=== PATIENT | male | born 1965 | race American Indian/Alaskan Native ===

== ENCOUNTER 2016-12-18 16:53 | Emergency (ER) | payer SELFPAY ==
[2016-12-18 17:30] LABS: Basophils % (Auto) 0.9 % (0.0-1.8); Eosinophils % (Auto) 3.3 % (0.0-4.3); Hematocrit 45.4 % (35.5-45.6); Hemoglobin 15.2 gm/dl (11.8-15.2); Mean Corpuscular HGB Conc 34 % (32-34); Mean Corpuscular Hemoglobin 33 pg (28-32); Mean Corpuscular Volume 98 fl (84-94); Platelet Count 221 K/mm3 (140-440); Red Blood Count 4.64 M/mm3 (3.65-5.03); Red Cell Distribution Width 13.1 % (13.2-15.2); White Blood Count 5.2 K/mm3 (4.5-11.0)
[2016-12-18 17:46] LABS: Anion Gap 12 mmol/L; BUN/Creatinine Ratio 24.28; Blood Urea Nitrogen 17 mg/dL (9-20); Calcium 9.3 mg/dL (8.4-10.2); Carbon Dioxide 29 mmol/L (22-30); Chloride 102.2 mmol/L (98-107); Glucose 93 mg/dL (75-100); Potassium 4.5 mmol/L (3.6-5.0); Sodium 139 mmol/L (137-145)
--- NOTE | 2016-12-19 00:09 | Emergency Department Report ---
- General Chief complaint: Neuro Symptoms/Deficit Stated complaint: LT ARM NUMBNESS Time Seen by Provider: 12/19/16 00:05 Source: patient Mode of arrival: Ambulatory Limitations: No Limitations - History of Present Illness Initial comments: Pt is a pleasant 51 yr old male with a h/o deopression who presents with intermittent parasthesias of his upper extremities. Pt reports they have been occurring for over a month with no other associated symptoms. Pt reports he discussed the findings with his mental health provider and he was told it was likely a side effect of his prozac. Currently patient is asymptomatic. Otherwise no fevers, chills, MADRID, dizziness, vision changes, speech changes, gait abnormality, neck pain, arm pain, CP, SOB, abd pain, trauma, falls, sick contacts, or travel - Related Data Allergies Allergy/AdvReac Type Severity Reaction Status Date / Time No Known Allergies Allergy Unverified 12/18/16 16:59 ED Review of Systems ROS: Stated complaint: LT ARM NUMBNESS Other details as noted in HPI Comment: All other systems reviewed and negative ED Past Medical Hx - Past Medical History Previous Medical History?: Yes Hx Psychiatric Treatment: Yes (depression) - Surgical History Past Surgical History?: No - Social History Smoking Status: Never Smoker Substance Use Type: None ED Physical Exam - General Limitations: No Limitations General appearance: alert, in no apparent distress - Head Head exam: Present: atraumatic, normocephalic - Eye Eye exam: Present: normal appearance - ENT ENT exam: Present: mucous membranes moist - Neck Neck exam: Present: normal inspection - Respiratory Respiratory exam: Present: normal lung sounds bilaterally. Absent: respiratory distress - Cardiovascular Cardiovascular Exam: Present: regular rate, normal rhythm. Absent: systolic murmur, diastolic murmur, rubs, gallop - GI/Abdominal GI/Abdominal exam: Present: soft, normal bowel sounds - Rectal Rectal exam: Present: deferred - Extremities Exam Extremities exam: Present: normal inspection - Back Exam Back exam: Present: normal inspection - Neurological Exam Neurological exam: Present: alert, oriented X3, CN II-XII intact, normal gait, reflexes normal, other ((-) cerebellar signs, (-)sensation changes). Absent: motor sensory deficit - Psychiatric Psychiatric exam: Present: normal affect, normal mood - Skin Skin exam: Present: warm, dry, intact, normal color. Absent: rash ED Course Vital Signs 12/18/16 16:59 Temperature 98.2 F Pulse Rate 69 Respiratory 18 Rate Blood Pressure 119/86 O2 Sat by Pulse 100 Oximetry ED Medical Decision Making - Lab Data Result diagrams: 12/18/16 17:17 12/18/16 17:17 Critical care attestation.: If time is entered above; I have spent that time in minutes in the direct care of this critically ill patient, excluding procedure time. ED Disposition Clinical Impression: Arm paresthesia, left, Paresthesia of both hands Disposition: DISCHARGED TO HOME OR SELFCARE Is pt being admited?: No Condition: Stable Instructions: Paresthesia (ED) Additional Instructions: Follow up with your mental health provider for medication review Referrals: PRIMARY CARE, [Primary Care Provider] - 3-5 Days
[2016-12-19 00:29] VITALS: BP 115/72
== END 2016-12-19 00:31 | disposition home or self-care (01) ==
LOC: ED 16:53
DX: R20.9 Unspecified disturbances of skin sensation (principal); F32.9 Major depressive disorder, single episode, unspecified
CPT/HCPCS: 36415; 80048; 85025; 99283

== ENCOUNTER 2017-10-15 09:28 | Emergency (ER) | payer SELFPAY ==
[2017-10-15] MEDS ORDERED: ASPIRIN PO ONE (09:58)
[2017-10-15 10:57] LABS: Basophils % (Auto) 0.8 % (0.0-1.8); Eosinophils % (Auto) 0.5 % (0.0-4.3); Hemoglobin 15.8 gm/dl (11.8-15.2); Lymphocytes # (Auto) 1.5 K/mm3 (1.2-5.4); Lymphocytes % (Auto) 30.4 % (13.4-35.0); Mean Corpuscular HGB Conc 34 % (32-34); Mean Corpuscular Hemoglobin 33 pg (28-32); Mean Corpuscular Volume 97 fl (84-94); Monocytes # (Auto) 0.4 K/mm3 (0.0-0.8); Monocytes % (Auto) 7.6 % (0.0-7.3); Platelet Count 211 K/mm3 (140-440); Red Blood Count 4.73 M/mm3 (3.65-5.03); Red Cell Distribution Width 12.6 % (13.2-15.2)
[2017-10-15 11:06] LABS: BUN/Creatinine Ratio 13; Blood Urea Nitrogen 12 mg/dL (9-20); Calcium 8.7 mg/dL (8.4-10.2); Hemolysis Index 25
[2017-10-15] MEDS ORDERED: LIDOCAINE VISCOUS 2% PO ONE (11:11)
[2017-10-15] MEDS ORDERED: ALUM-MAG HYDROX-SIMETH 200-200-20MG/5ML PO ONE (11:11)
--- NOTE | 2017-10-15 11:16 | Emergency Department Report ---
ED Chest Pain HPI - General Chief Complaint: Chest Pain Stated Complaint: CHEST PAIN Time Seen by Provider: 10/15/17 10:47 Source: patient Mode of arrival: Ambulatory Limitations: No Limitations - History of Present Illness Initial Comments: 51-year-old male with no significant past medical history that presents with intermittent, progressive onset left sided chest pain. Pain is burning in nature. Nonradiating. Nonexertional. Nonpleuritic. Patient states the symptoms to get worse when he lies down. This been going on for the past month. He says episodes happened 3-4 times a week. Has never had these episodes checked out before. Patient states that he hasn't really been eating much lately. Has not tried anything for the symptoms at home. He is a smoker. -: Gradual Severity scale (0 -10): 0 Quality: aching, other (burning) Other Symptoms: denies: cough, fever, syncope, rash, acid taste in mouth, leg swelling, palpitations, burping Treatments Prior to Arrival: none Aspirin use within the Past 7 Days: (0) No - Related Data Allergies Allergy/AdvReac Type Severity Reaction Status Date / Time No Known Allergies Allergy Verified 10/15/17 09:53 Heart Score - HEART Score History: Slightly suspicious EKG: Normal Age: 45-65 Risk factors: 1-2 risk factors Troponin: < normal limit HEART Score: 2 ED Review of Systems ROS: Stated complaint: CHEST PAIN Other details as noted in HPI Constitutional: denies: chills, fever Eyes: denies: eye pain, eye discharge, vision change Respiratory: denies: cough, shortness of breath, wheezing Cardiovascular: chest pain Gastrointestinal: denies: abdominal pain, nausea, diarrhea Genitourinary: denies: dysuria, frequency Musculoskeletal: denies: back pain, joint swelling, arthralgia Skin: denies: rash Psychiatric: denies: anxiety, depression Hematological/Lymphatic: denies: easy bleeding, easy bruising ED Past Medical Hx - Past Medical History Hx Psychiatric Treatment: Yes (depression) - Family History Family history: hypertension - Social History Smoking Status: Current Every Day Smoker Substance Use Type: None ED Physical Exam - General Limitations: No Limitations General appearance: alert, in no apparent distress - Head Head exam: Present: atraumatic, normocephalic - Eye Eye exam: Present: normal appearance - ENT ENT exam: Present: normal orophraynx, mucous membranes moist - Neck Neck exam: Present: normal inspection - Respiratory Respiratory exam: Present: normal lung sounds bilaterally. Absent: respiratory distress - Cardiovascular Cardiovascular Exam: Present: regular rate, normal rhythm, other (left chest wall tenderness). Absent: systolic murmur, diastolic murmur, rubs, gallop - GI/Abdominal GI/Abdominal exam: Present: soft, normal bowel sounds - Extremities Exam Extremities exam: Present: normal inspection - Neurological Exam Neurological exam: Present: alert, oriented X3 - Psychiatric Psychiatric exam: Present: normal affect, normal mood - Skin Skin exam: Present: warm, dry, intact, normal color ED Course Vital Signs 10/15/17 10/15/17 09:58 11:48 Temperature 98.3 F 98.1 F Pulse Rate 65 55 L Respiratory 20 12 Rate Blood Pressure 122/69 114/72 [Right] O2 Sat by Pulse 100 100 Oximetry CHANDAN score - Chandan Score Age > 65: (0) No Aspirin use within the Past 7 Days: (0) No 3 or more CAD Risk Factors: (0) No 2 or more Angina events in past 24 hrs: (1) Yes Known CAD with more than 50% Stenosis: (0) No Elevated Cardiac Markers: (0) No ST Deviation Greater than 0.5mm: (0) No CHANDAN Score: 1 ED Medical Decision Making - Lab Data Result diagrams: 10/15/17 10:28 10/15/17 11:26 - EKG Data EKG shows normal: sinus rhythm, axis, intervals, QRS complexes, ST-T waves Rate: normal - EKG Data When compared to previous EKG there are: previous EKG unavailable Interpretation: nonspecific ST-T wave stella - Radiology Data Radiology results: report reviewed, image reviewed interpreted by me: no acute process - Medical Decision Making 51-year-old male which presents with history of atypical chest pain. EKG is nonischemic. Troponins negative 1. Patient is low risk by heart score. Chest pain is reproducible on visual exam. He says that it has been going on for the past month without worsening. He rides his bike every day to work and this doesn't affect his chest pain when it occurs. Patient was given a GI cocktail, which also improved his symptoms. He reports not eating anything for the past 5 days. Patient will be started on Tylenol/Pepcid for symptomatically relief. He will be referred to this outside clinic for further management. I have low suspicion for ACS, PE, unstable angina, AAA at this time. Return because haven't discussed. Clear for discharge. - Differential Diagnosis STEMI, unstable angina, ACS, pericarditis, pneumothorax, pneumonia, bronchi Critical care attestation.: If time is entered above; I have spent that time in minutes in the direct care of this critically ill patient, excluding procedure time. ED Disposition Clinical Impression: Chest pain Disposition: DC-01 TO HOME OR SELFCARE Is pt being admited?: No Does the pt Need Aspirin: No Condition: Stable Instructions: Chest Pain (ED), Costochondritis (ED) Additional Instructions: Please start taking 975 mg Tylenol every 6 hours for the next week. After this a daily 20 mg Pepcid. Both these medications can be purchased over-the- counter. Stop taking his medications after week. Please add a daily baby aspirin, 81 mg, to your home medications. If your chest pain returns please continue the Pepcid. If he develops worsening chest pain, chest pain that is affected by exertion, or the pain started radiating down her arm, please return to the ER immediately for reevaluation. Referrals: PRIMARY CAREMD [Primary Care Provider] - 3-5 Days [facility] [Outside] - 3-5 Days
--- NOTE | 2017-10-15 12:05 | XRay Report ---
CHEST 2 VIEWS INDICATION: Chest pain. COMPARISON: None similar at this institution. FINDINGS: PA and lateral chest radiographs demonstrate normal cardiomediastinal silhouette. Clear lungs. Intact bones. CONCLUSION: No acute disease in the chest. Thank you for the opportunity to participate in this patient's care.
[2017-10-15 12:13] LABS: BUN/Creatinine Ratio 13; Blood Urea Nitrogen 12 mg/dL (9-20); Calcium 8.4 mg/dL (8.4-10.2); Hemolysis Index 7
[2017-10-15 18:39] VITALS: BP 104/65
== END 2017-10-15 13:20 | disposition home or self-care (01) ==
LOC: ED 09:28
DX: R07.9 Chest pain, unspecified (principal); F32.9 Major depressive disorder, single episode, unspecified; I10 Essential (primary) hypertension; F17.200 Nicotine dependence, unspecified, uncomplicated
CPT/HCPCS: 36415; 71046; 80048; 84484; 85025; 93005; 93010; 99284

== ENCOUNTER 2021-03-23 15:53 | Emergency (ER) | payer SELFPAY ==
--- NOTE | 2021-03-23 19:28 | Emergency Department Report ---
ED Back Pain/Injury HPI - General Chief Complaint: Back Pain/Injury Stated Complaint: PAIN LOWER BACK ON RT SIDE Time Seen by Provider: 03/23/21 19:23 Source: patient Limitations: No Limitations - History of Present Illness Initial Comments: Patient is a 55-year-old male who presents emergency room complaints of right lower back pain that began 2 weeks ago. Patient reports that he works at [employer] and frequently lifts heavy boxes. He denies any fall or injury. He denies any fever, nausea, vomiting, diarrhea, abdominal pain, chest pain, shortness of breath, numbness, weakness, bowel or bladder incontinence, urinary symptoms. He is ambulatory without difficulty. No past medical history. No allergies to medications. He denies any steroid use, history of cancer, IV drug use. - Related Data Previous Rx's Medication Instructions Recorded Last Taken Type Menthol/Camphor [[place] 1 applicatio TP BID #18 oint...g. 03/23/21 Unknown Rx Ointment] Naproxen [EC-Naprosyn] 500 mg PO BID PRN #14 tablet. 03/23/21 Unknown Rx methOCARBAMOL [Robaxin TAB] 500 mg PO BID PRN #14 tab 03/23/21 Unknown Rx Allergies Allergy/AdvReac Type Severity Reaction Status Date / Time peanut AdvReac Unknown Verified 03/23/21 16:29 ED Review of Systems ROS: Stated complaint: PAIN LOWER BACK ON RT SIDE Other details as noted in HPI Comment: All other systems reviewed and negative ED Past Medical Hx - Past Medical History Hx Psychiatric Treatment: Yes (depression) - Surgical History Additional Surgical History: Pt states that he has a testicular surgery at 15 yrs old. - Social History Smoking Status: Current Every Day Smoker Substance Use Type: None - Medications Home Medications: Home Medications Medication Instructions Recorded Confirmed Last Taken Type Menthol/Camphor [[place] 1 applicatio TP BID #18 oint...g. 03/23/21 Unknown Rx Ointment] Naproxen [EC-Naprosyn] 500 mg PO BID PRN #14 tablet. 03/23/21 Unknown Rx methOCARBAMOL [Robaxin TAB] 500 mg PO BID PRN #14 tab 03/23/21 Unknown Rx ED Physical Exam - General Limitations: No Limitations General appearance: alert, in no apparent distress - Head Head exam: Present: atraumatic, normocephalic - Eye Eye exam: Present: normal appearance - ENT ENT exam: Present: mucous membranes moist - Neck Neck exam: Present: normal inspection, full ROM. Absent: tenderness, meningis mus - Respiratory Respiratory exam: Present: normal lung sounds bilaterally. Absent: respiratory distress, wheezes, rales, rhonchi, stridor, chest wall tenderness, accessory muscle use, decreased breath sounds, prolonged expiratory - Cardiovascular Cardiovascular Exam: Present: regular rate, normal rhythm, normal heart sounds. Absent: systolic murmur, diastolic murmur, rubs, gallop - Back Exam Back exam: Present: normal inspection, full ROM, paraspinal tenderness (right sided lumbar paraspinal muscular ttp, no midline C-spine, T-spine or L-spine ttp, no step offs, no deformities ). Absent: vertebral tenderness - Neurological Exam Neurological exam: Present: alert, oriented X3, CN II-XII intact, normal gait. Absent: motor sensory deficit - Psychiatric Psychiatric exam: Present: normal affect, normal mood - Skin Skin exam: Present: warm, dry, intact ED Course Vital Signs 03/23/21 16:29 Temperature 98.1 F Pulse Rate 81 Respiratory 18 Rate Blood Pressure 133/77 O2 Sat by Pulse 97 Oximetry ED Medical Decision Making - Medical Decision Making Patient is a 55-year-old male who presents emergency room complaints of right lower back pain that began 2 weeks ago. Patient reports that he works at [employer] and frequently lifts heavy boxes. He denies any fall or injury. He denies any fever, nausea, vomiting, diarrhea, abdominal pain, chest pain, shortness of breath, numbness, weakness, bowel or bladder incontinence, urinary symptoms. He is ambulatory without difficulty. No past medical history. No allergies to medications. He denies any steroid use, history of cancer, IV drug use. Vitals are normal. On exam:right sided lumbar paraspinal muscular ttp, no midline C-spine, T-spine or L-spine ttp, no step offs, no deformities, no focal neuro deficits, patient is ambulatory without difficulty. Symptoms and examination appear could likely be consistent with a lumbar strain secondary to his heavy lifting. Patient has no red flag warning signs of back pain, no trauma, no unexplained weight loss, no fever, no IV drug use, no steroid use, no history of cancer, no neuro deficits, no saddle numbness. Patient given prescription for medications. Advised patient Please take medication as prescribed as needed. Do not drive or operate machinery while taking muscle relaxer Robaxin. May use ice pack, heating pad, rest, epsom salt bath. Do not use heat or ice while using Baden balm. Follow-up with your primary care doctor. Follow-up with a resume specialist. Return to emergency room for any new or worsening symptoms. Critical care attestation.: If time is entered above; I have spent that time in minutes in the direct care of this critically ill patient, excluding procedure time. ED Disposition Clinical Impression: Low back pain Qualifiers: Chronicity: acute Back pain laterality: right Sciatica presence: without sciatica Qualified Code(s): M54.5 - Low back pain Disposition: TO HOME OR SELFCARE Is pt being admited?: No Does the pt Need Aspirin: No Condition: Stable Instructions: Acute Back Pain, Adult Additional Instructions: Please take medication as prescribed as needed. Do not drive or operate machinery while taking muscle relaxer Robaxin. May use ice pack, heating pad, rest, epsom salt bath. Do not use heat or ice while using Baden balm. Follow- up with your primary care doctor. Follow-up with a resume specialist. Return to emergency room for any new or worsening symptoms. Prescriptions: Naproxen [EC-Naprosyn] 500 mg PO BID PRN #14 tablet.dr PRN Reason: pain methOCARBAMOL [Robaxin TAB] 500 mg PO BID PRN #14 tab PRN Reason: muscle spasm/pain Menthol/Camphor [[place] Ointment] 1 applicatio TP BID #18 oint...g. Referrals: ROSA CORTÉS MD [Staff Physician] - 3-5 Days [facility] [Provider Group] - 3-5 Days RAPHAEL HANDY II, MD [Staff Physician] - 3-5 Days Forms: Work/School Release Form(ED) Time of Disposition: 19:28 Print Language: TAJIK
[2021-03-23 22:27] VITALS: BP 128/88
== END 2021-03-23 21:30 | disposition home or self-care (01) ==
LOC: ED 15:53
DX: M54.5 Low back pain (principal); F32.9 Major depressive disorder, single episode, unspecified; F17.200 Nicotine dependence, unspecified, uncomplicated; Z91.010 Allergy to peanuts; Z79.899 Other long term (current) drug therapy
CPT/HCPCS: 99282

== ENCOUNTER 2021-12-17 16:36 | Emergency (ER) | payer SELFPAY ==
[2021-12-17 20:09] VITALS: BP 140/94
[2021-12-17] MEDS ORDERED: ACETAMINOPHEN 325 MG/10.15 ML ORAL LIQD UNIT DOSE PO ONE (23:09)
[2021-12-17] MEDS ORDERED: IBUPROFEN 600 MG TAB PO ONE (23:09)
--- NOTE | 2021-12-17 23:43 | Emergency Department Report ---
ED General Adult HPI - General Chief complaint: Back Pain/Injury Stated complaint: LOWER BACK PAIN Time Seen by Provider: 12/17/21 23:33 Source: patient, RN notes reviewed Mode of arrival: Ambulatory Limitations: No Limitations - History of Present Illness Initial comments: This is a pleasant and cooperative 56-year-old gentleman who presents to the ER today with a request for a work excuse, and also complaint of back pain for 10 years. He denies additional injuries and complaints. -: year(s) Location: back Radiation: non-radiation Severity scale (0 -10): 7 Quality: aching Consistency: intermittent Worsens with: movement, rest Associated Symptoms: denies other symptoms - Related Data Previous Rx's Medication Instructions Recorded Last Taken Type Acetaminophen [Non-Aspirin Extra 500 mg PO Q6HR PRN #30 tablet 12/17/21 Unknown Rx Strength] Naproxen [EC-Naprosyn] 500 mg PO BID PRN #14 tablet. 12/17/21 Unknown Rx Allergies Allergy/AdvReac Type Severity Reaction Status Date / Time peanut AdvReac Unknown Verified 12/17/21 23:19 ED Review of Systems ROS: Stated complaint: LOWER BACK PAIN Other details as noted in HPI Comment: All other systems reviewed and negative Musculoskeletal: back pain ED Past Medical Hx - Past Medical History Previous Medical History?: No Hx Psychiatric Treatment: Yes (depression) - Surgical History Past Surgical History?: No Additional Surgical History: Pt states that he has a testicular surgery at 15 yrs old. - Social History Smoking Status: Smoker, Current Status Unknown - Medications Home Medications: Home Medications Medication Instructions Recorded Confirmed Last Taken Type Acetaminophen [Non-Aspirin Extra 500 mg PO Q6HR PRN #30 tablet 12/17/21 Unknown Rx Strength] Naproxen [EC-Naprosyn] 500 mg PO BID PRN #14 tablet. 12/17/21 Unknown Rx ED Physical Exam - General Limitations: No Limitations General appearance: alert, in no apparent distress - Head Head exam: Present: atraumatic, normocephalic - Eye Eye exam: Present: normal appearance, EOMI. Absent: nystagmus - ENT ENT exam: Present: normal exam, normal orophraynx, mucous membranes moist, normal external ear exam - Neck Neck exam: Present: normal inspection, full ROM. Absent: tenderness, meningismus - Respiratory Respiratory exam: Present: normal lung sounds bilaterally. Absent: respiratory distress, wheezes, rales, rhonchi, stridor, decreased breath sounds - Cardiovascular Cardiovascular Exam: Present: regular rate, normal rhythm, normal heart sounds. Absent: bradycardia, tachycardia, irregular rhythm, systolic murmur, diastolic murmur, rubs, gallop - GI/Abdominal GI/Abdominal exam: Present: soft. Absent: distended, tenderness, guarding, rebound, rigid, pulsatile mass - Rectal Rectal exam: Present: deferred - Extremities Exam Extremities exam: Present: normal inspection, full ROM, other (2+ pulses noted in the bilateral upper and lower extremities. There is no palpable cord. negative Homans sign. Muscular compartments are soft. The pelvis is stable.). Absent: pedal edema, calf tenderness - Back Exam Back exam: Present: normal inspection, full ROM. Absent: tenderness, CVA tenderness (R), CVA tenderness (L), paraspinal tenderness, vertebral tenderness - Neurological Exam Neurological exam: Present: alert, oriented X3, normal gait, reflexes normal, other (No facial droop. Tongue midline. Extraocular movements intact bilaterally. Facial sensation intact to light touch in V1, V2, V3 distribution bilaterally. 5 and a 5 strength in 4 extremities. Sensation intact to light touch in 4 extremities.). Absent: motor sensory deficit - Psychiatric Psychiatric exam: Present: normal affect, normal mood - Skin Skin exam: Present: warm, dry, intact, normal color. Absent: rash ED Course Vital Signs 12/17/21 19:58 Temperature 98.3 F Pulse Rate 62 Respiratory 18 Rate Blood Pressure 140/94 O2 Sat by Pulse 99 Oximetry ED Medical Decision Making - Lab Data Vital Signs 12/17/21 19:58 Temperature 98.3 F Pulse Rate 62 Respiratory 18 Rate Blood Pressure 140/94 O2 Sat by Pulse 99 Oximetry - Medical Decision Making Differential diagnosis, including but not limited to: Chronic back pain, encounter for medical screening examination Assessment and plan: 56-year-old gentleman presenting to the ER today with a request for work note, and complaint of lower back pain for 10 years. He is neurovascular intact, ambulates with a steady gait, has no motor or sensory deficits, and no pulsatile abdominal mass. Does not have an outpatient primary care doctor. Rest, ice, compression, elevation, Tylenol, Motrin, weightbearing as tolerated, outpatient primary care follow-up. Critical care attestation.: If time is entered above; I have spent that time in minutes in the direct care of this critically ill patient, excluding procedure time. ED Disposition Clinical Impression: Chronic back pain Disposition: 01 HOME / SELF CARE / HOMELESS Is pt being admited?: No Does the pt Need Aspirin: No Condition: Good Instructions: Chronic Back Pain, [id number] Additional Instructions: Follow-up with a primary care doctor within the next month. Alternate ice packs and heat packs as needed for physical pain. Take the prescribed pain medications as needed and directed. Avoid heavy lifting and strenuous physical activities. Participate in activities as tolerated. Please return to the emergency room right away with new pain, worsened pain, migration of pain, projectile vomiting, change in mental status, confusion, inability tolerate liquid feeds, new, worsened or different symptoms not present on the initial emergency room evaluation Prescriptions: Naproxen [EC-Naprosyn] 500 mg PO BID PRN #14 tablet. PRN Reason: pain Acetaminophen [Non-Aspirin Extra Strength] 500 mg PO Q6HR PRN #30 tablet PRN Reason: Pain , Severe (7-10) Referrals: [facility] [Provider Group] - 3-5 Days [facility] [Outside] - 3-5 Days Forms: Work/School Release Form(ED)
== END 2021-12-18 00:23 | disposition home or self-care (01) ==
LOC: ED 16:36
DX: G89.29 Other chronic pain (principal); M54.9 Dorsalgia, unspecified; F17.200 Nicotine dependence, unspecified, uncomplicated; Z91.010 Allergy to peanuts
CPT/HCPCS: 99282

== ENCOUNTER 2022-04-01 19:11 | Emergency (ER) | payer SELFPAY ==
--- NOTE | 2022-04-02 01:34 | Emergency Department Report ---
ED General Adult HPI - General Chief complaint: Neck Pain/Injury Stated complaint: LUMP ON NECK Time Seen by Provider: 04/02/22 01:08 Source: patient Mode of arrival: Ambulatory Limitations: No Limitations - History of Present Illness Initial comments: Patient 56-year-old male who presents for lump to the right lateral neck for the past 6 months. Patient denies fevers or chills there is no cervical cough no stridor no difficulty swallowing. Patient denies smoking denies history of thyroid denies history of CVA. Mass is painless and movable. There is been no fevers chills. No rigors. - Related Data Previous Rx's Medication Instructions Recorded Last Taken Type Acetaminophen [Non-Aspirin Extra 500 mg PO Q6HR PRN #30 tablet 12/17/21 Unknown Rx Strength] Naproxen [EC-Naprosyn] 500 mg PO BID PRN #14 tablet. 12/17/21 Unknown Rx Allergies Allergy/AdvReac Type Severity Reaction Status Date / Time peanut AdvReac Unknown Verified 12/17/21 23:19 ED Review of Systems ROS: Stated complaint: LUMP ON NECK Other details as noted in HPI Constitutional: denies: chills, fever Eyes: denies: eye pain, eye discharge, vision change ENT: denies: ear pain, throat pain, congestion Respiratory: denies: cough, shortness of breath, stridor, wheezing Cardiovascular: denies: chest pain, palpitations Endocrine: no symptoms reported Gastrointestinal: denies: abdominal pain, nausea, vomiting, diarrhea Genitourinary: denies: urgency, dysuria Musculoskeletal: denies: back pain, joint swelling, arthralgia Skin: denies: rash, lesions Neurological: denies: headache, weakness, paresthesias, vertigo Psychiatric: denies: anxiety, depression Hematological/Lymphatic: denies: easy bleeding, easy bruising ED Past Medical Hx - Past Medical History Hx Psychiatric Treatment: Yes (depression) - Surgical History Additional Surgical History: Pt states that he has a testicular surgery at 15 yrs old. - Social History Smoking Status: Smoker, Current Status Unknown - Medications Home Medications: Home Medications Medication Instructions Recorded Confirmed Last Taken Type Acetaminophen [Non-Aspirin Extra 500 mg PO Q6HR PRN #30 tablet 12/17/21 Unknown Rx Strength] Naproxen [EC-Naprosyn] 500 mg PO BID PRN #14 tablet. 12/17/21 Unknown Rx ED Physical Exam - General Limitations: No Limitations General appearance: alert, in no apparent distress - Head Head exam: Present: normocephalic, normal inspection - Eye Eye exam: Present: PERRL, EOMI. Absent: conjunctival injection, nystagmus Pupils: Present: normal accommodation - ENT ENT exam: Present: normal orophraynx, mucous membranes moist, TM's normal bilaterally, normal external ear exam - Expanded ENT Exam Expanded Ear exam: Present: normal external inspection Mouth exam: Present: normal external inspection, tongue normal. Absent: trismus, tongue elevation Throat exam: Positive: normal inspection, other (Uvula midline no stridor no exudate no lesion). Negative: tonsillar erythema, tonsillomegaly, tonsillar exudate, R peritonsillar mass, L peritonsillar mass - Neck Neck exam: Present: full ROM, lymphadenopathy (Right anterior cervical lymph). Absent: tenderness, meningismus, thyromegaly - Expanded Neck Exam Expanded Neck exam: Present: other (Right lateral neck mass versus lymph movable nonpainf ul no erythema no ecchymosis no crepitus no drainage). Absent: tenderness, midline deformity, anterior neck swelling, thyroid mass, carotid bruit, tracheal deviation - Respiratory Respiratory exam: Present: normal lung sounds bilaterally. Absent: respiratory distress, wheezes, chest wall tenderness - Cardiovascular Cardiovascular Exam: Present: regular rate, normal rhythm, normal heart sounds. Absent: systolic murmur, diastolic murmur, rubs, gallop - GI/Abdominal GI/Abdominal exam: Present: soft, normal bowel sounds. Absent: distended, tenderness, guarding, rebound, rigid, bruit, hernia - Rectal Rectal exam: Present: deferred - Extremities Exam Extremities exam: Present: normal inspection, full ROM, normal capillary refill - Back Exam Back exam: Present: normal inspection, full ROM. Absent: CVA tenderness (R), CVA tenderness (L) - Neurological Exam Neurological exam: Present: alert, oriented X3, CN II-XII intact - Expanded Neurological Exam Expanded Patient oriented to: Present: person, place, time Speech: Present: fluid speech Cranial nerves: Gag Reflex: Normal, Tongue Deviation: Normal Motor strength exam: RUE: 5, LUE: 5, RLE: 5, LLE: 5 Best Eye Response ([place]): (4) open spontaneously Best Motor Response ([place]): (6) obeys commands Best Verbal Response ([place]): (5) oriented [place] Total: 15 - Psychiatric Psychiatric exam: Present: normal affect, normal mood - Skin Skin exam: Present: warm, dry, intact, normal color. Absent: rash ED Course Vital Signs 04/01/22 20:18 Temperature 98.7 F Pulse Rate 77 Respiratory 18 Rate Blood Pressure 122/78 [Right] O2 Sat by Pulse 99 Oximetry ED Medical Decision Making - Radiology Data Radiology results: report reviewed, image reviewed Pt presents for complaint for medication refill for losartan 50 mg p.o. daily taken for BP control. Patient denies dizziness no lightheadedness no chest pain no nausea no vomiting. No diaphoresis. Patient is alert oriented x3 appears nontoxic. Patient denies SI or HI. Patient does have history of depression. Advises adherence with medication regimen. Patient denies other complaint. - Medical Decision Making There is no fevers no chills airway is patent there is no stridor no shortness of breath no throat or ear pain. Mass is soft nontender movable symptoms for past 6 months, patient does not have thyroid disease, there is been no fevers no chills. Plan follow-up primary care doctor in 2 to 3 days. Return to emergency department should symptoms worsen. Critical care attestation.: If time is entered above; I have spent that time in minutes in the direct care of this critically ill patient, excluding procedure time. ED Disposition Clinical Impression: Mass in neck Disposition: 01 HOME / SELF CARE / HOMELESS Is pt being admited?: No Does the pt Need Aspirin: No Condition: Stable Additional Instructions: Plan follow-up with general surgery 2 to 3 days,, follow-up with primary care doctor 2 to 3 days. Return to emergency department should symptoms worsen. Referrals: VALENTINA MICHAEL DO [Staff Physician] - 3-5 Days Forms: Work/School Release Form(ED) Time of Disposition: 02:31
--- NOTE | 2022-04-02 02:15 | XRay Report ---
Soft tissue neck 2 views INDICATION: Neck mass FINDINGS: Prevertebral soft tissues are unremarkable. Peritonsillar soft tissues are not well seen on this examination. Airway appears patent. Degenerative changes seen throughout spine. If there is con cern for neck mass a CT soft tissue neck with contrast is recommended Signer Name: Barney Walker MD Signed: 04/02/2022 2:11 AM Workstation Name: [id number]
[2022-04-02 02:40] VITALS: BP 131/74
== END 2022-04-02 02:55 | disposition home or self-care (01) ==
LOC: ED 19:11
DX: R22.1 Localized swelling, mass and lump, neck (principal); M54.2 Cervicalgia; F32.9 Major depressive disorder, single episode, unspecified; F17.200 Nicotine dependence, unspecified, uncomplicated; Z91.010 Allergy to peanuts; Z79.899 Other long term (current) drug therapy
CPT/HCPCS: 70360; 99283